=== PATIENT | male | born 1975 | race Caucasian/White ===

== ENCOUNTER 2018-08-23 11:43 | Emergency (ER) | payer BC ==
[2018-08-23] MEDS ORDERED: Phenylephrine INJ* 10 MG/ML 1 ML VIAL (10 MG) ONE ×2 (12:00→12:01)
--- NOTE | 2018-08-23 12:12 | ED ---
GI/ HPI - HPI Summary HPI Summary: This patient is a 42 year old M presenting to [facility] with a chief complaint of priapism since waking up at 0530 this morning. The patient was BIBA as a transfer from [facility]. The patient states he takes Apriso and Omeprazole. The patient denies taking any substances recently other than sugar and caffeine. The patient denies fever and chills. He rates his pain 3/10 in severity. - History of Current Complaint Chief Complaint: EDUrogenitalProblems Time Seen by Provider: 08/23/18 11:52 Stated Complaint: GENITAL ISSUE-S[facility] Hx Obtained From: Patient Onset/Duration: Started Hours Ago Timing: Constant Severity: Mild Current Severity: Mild Aggravating Factor(s): Nothing Alleviating Factor(s): Nothing - Allergy/Home Medications Allergies/Adverse Reactions: Allergies Allergy/AdvReac Type Severity Reaction Status Date / Time metoclopramide [From Reglan] Allergy Rash Verified 08/23/18 12:01 Home Medications: Home Medications Mesalamine [Apriso] 4 cap PO DAILY 08/23/18 [History Confirmed 08/23/18] PMH/Surg Hx/FS Hx/Imm Hx Endocrine/Hematology History: Denies: Hx Diabetes Cardiovascular History: Denies: Hx Coronary Artery Disease Respiratory History: Denies: Hx Chronic Obstructive Pulmonary Disease (COPD) GI History: Reports: Other GI Disorders - Ulcerative colitis, splenectomy - Social History Alcohol Use: Occasionally Substance Use Type: Reports: None Smoking Status (MU): Former Smoker Review of Systems Negative: Fever Positive: other - Priapism All Other Systems Reviewed And Are Negative: Yes Physical Exam - Summary Physical Exam Summary: VITAL SIGNS: Reviewed. GENERAL: Patient is a well-developed and nourished MALE who is lying comfortable in the stretcher. Patient is not in any acute respiratory distress. Priapism HEAD AND FACE: No signs of trauma. No ecchymosis, hematomas or skull depressions. No sinus tenderness. EYES: PERRLA, EOMI x 2, No injected conjunctiva, no nystagmus. EARS: Hearing grossly intact. Ear canals and tympanic membranes are within normal limits. MOUTH: Oropharynx within normal limits. NECK: Supple, trachea is midline, no adenopathy, no JVD, no carotid bruit, no c- spine tenderness, neck with full ROM. CHEST: Symmetric, no tenderness at palpation LUNGS: Clear to auscultation bilaterally. No wheezing or crackles. CVS: Regular rate and rhythm, S1 and S2 present, no murmurs or gallops appreciated. ABDOMEN: Soft, non-tender. No signs of distention. No rebound no guarding, and no masses palpated. Bowel sounds are normal. EXTREMITIES: FROM in all major joints, no edema, no cyanosis or clubbing. NEURO: Alert and oriented x 3. No acute neurological deficits. Speech is normal and follows commands. SKIN: Dry and warm Triage Information Reviewed: Yes Vital Signs Reviewed: Yes Diagnostics - Laboratory Result Diagrams: 08/23/18 12:52 08/23/18 12:52 Lab Statement: Any lab studies that have been ordered have been reviewed, and results considered in the medical decision making process. GIGU Course/Dx - Course Assessment/Plan: This patient is a 42 year old M presenting to [facility] with a chief complaint of priapism since waking up at 0530 this morning. The patient was BIBA as a transfer from [facility]. The patient states he takes Apriso and Omeprazole. The patient denies taking any substances recently other than sugar and caffeine. The patient denies fever and chills. He rates his pain 3/10 in severity. CBC was normal limits except for slight increased wbcs of 12. ABG from blood extracted from his penis shows a pH of less than 7, PCO2 109 and PCO2 [address] Gonzales from urology review of the labs and after his treatment there. Patient isnt resolved. At this point the patient is to be discharged home with follow-up as needed. I he was instructed to take Sudafed 60 mg every 6 hours for 24 hours. Also at the first sign of priapism he will take 60 mg of Sudafed by mouth and return to the emergency department. No sexual activity for approximately 2 weeks. The patient was discharged home with follow-up with primary care physician. Patient is hemodynamically stable alert oriented 3. - Diagnoses Provider Diagnoses: Priapism - Physician Notifications Discussed Care Of Patient With: Eddie Gonzales - Urology Time Discussed With Above Provider: 11:30 - Notified FRINGE MAKER Instructed by Provider To: MD Will See In ED Discharge - Sign-Out/Discharge Documenting (check all that apply): Patient Departure - Discharge - Discharge Plan Condition: Stable Disposition: HOME Prescriptions: Pseudoephedrine TAB* [Sudafed TAB*] 60 mg PO TID #10 tab Patient Education Materials: Priapism (ED) Referrals: Tanner Pink DO [Primary Care Provider] - Additional Instructions: Return to ED if experiencing any new or worsening symptoms. - Billing Disposition and Condition Condition: STABLE Disposition: Home - Attestation Statements Document Initiated by Scribe: Yes Documenting Scribe: Tashi Kitchen Provider For Whom Ivanna is Documenting (Include Credential): Kennedy Beck MD Scribe Attestation: Tashi Sadler, scribed for Kennedy Beck MD on 08/23/18 at 1410. Scribe Documentation Reviewed: Yes Provider Attestation: The documentation as recorded by the Tashi dennis accurately reflects the service I personally performed and the decisions made by , Kennedy Beck MD
[2018-08-23 13:06] LABS: ABS Basophils 0.1 10^3/ul (0-0.2); ABS Eosinophils 0.1 10^3/ul (0-0.6); ABS Lymphocytes 2.3 10^3/ul (1.0-4.8); ABS Neutrophils 8.6 10^3/ul (1.5-7.7); ABS Nucleated RBC 0 10^3/ul; Eosinophil % 0.8 % (0-6); Hematocrit 46 % (42-52); Hemoglobin 15.4 g/dl (14.0-18.0); Lymphocyte % 18.7 % (25-47); Mean Corpuscular HGB Conc 34 g/dl (31-36); Mean Corpuscular Hemoglobin 29 pg (27-31); Mean Corpuscular Volume 87 fL (80-94); Mean Platelet Volume 9.4 um3 (7.4-10.4); Nucleated Red Blood Cells % 0.1; Platelet Count 271 10^3/ul (150-450); Red Blood Count 5.24 10^6/ul (4.00-5.40); Red Cell Distribution Width 15 % (10.5-15)
[2018-08-23 13:19] LABS: EGFR Non-African American 90.2 (>60)
[2018-08-23 14:06] VITALS: BP 149/95
--- NOTE | 2018-08-23 16:31 | CONS ---
EMERGENCY ROOM CONSULTATION NOTE: DATE OF CONSULT: 08/23/18 PROCEDURE: Penile aspiration and injection Reduction of Priapism HISTORY OF PRESENT ILLNESS: I was asked by the emergency room staff to see this 42- year-old white male because of priapism. Mr. Chowdhury woke up this morning with an erection. The erection persisted and became painful. He went to the emergency room at [facility] where the diagnosis of priapism was made. He was then referred to the emergency room at [facility] for urological care. I saw the patient shortly after his arrival to [facility] ED. The priapism has been present for about 6 hours. The patient's past history is completely negative. He denies any previous episodes of priapism. He denies any recreational drug use. He denies the use of any PDE-5 inhibitors. He is on no antidepressants. His only 2 medications are for GERD. He denies any history of hematological diseases or hypercoagulopathy. He denies any history of perineal or genital trauma. He is in excellent health. His only medical problem is GERD. He is and has a 4-year-old son. There has not been anything unusual according to the patient that could have precipitated this episode. PHYSICAL EXAM: He has an elevated blood pressure at 160/100, but he was anxious. Exam of the abdomen is normal. External Genitalia: He has painful priapism. The testes feel normal. There is no ecchymosis noted in the genital or in the perineal area. There are no signs of any ecchymosis anywhere else on his body to suggest coagulopathy. PROCEDURE: To reduce the priapism, the penis was prepped with Betadine. A 21- gauge butterfly was introduced in the right corpus cavernosum. A total of 40 cc of dark venous blood was aspirated and evacuated. Penile blood specimen was sent for blood gases. A solution of phenylephedrine 0.5 mg/cc was prepared. The patient was placed on blood pressure and gambling monitor. 1 cc of the above solution was injected in the corpus cavernosum every 5 minutes monitoring the EKG and the blood pressure. A total of 7 cc was injected. There was complete reduction of the priapism and the pain resolved. The patient was observed for another half an hour in the emergency room and there was no recurrence of the priapism. LABORATORY DATA: The blood gases on the penile blood were consistent with ischemic priapism with a pH< 7, pCO2 of 109, and pO2 of 18. His CBC showed white count of 12,000 with 19% lymphocytes, 72% neutrophils, platelets at 270,000, absolute neutrophils at 8.6, and monocytes at 8.1. PLAN: Plan is to discharge the patient home and I advised him to take Sudafed 60 mg every 6 to 8 hours for the next 24 hours. He is to also use the Sudafed at the first sign of recurrence of the priapism. He is not supposed to attempt intercourse for 1 week. I will see him back in follow-up as needed. [id number]/[facility] #: [id number] HARLE[place]
== END 2018-08-23 13:30 | disposition home or self-care (01) ==
LOC: ED 11:43
DX: N48.30 Priapism, unspecified (principal)
CPT/HCPCS: 36415; 80053; 82803; 85025; 96374; 99282